=== PATIENT | female | born 1995 | race Caucasian/White ===

== ENCOUNTER 2016-10-14 13:22 | Emergency (ER) | payer BC, MEDICAID ==
[2016-10-14] MEDS ORDERED: ONDANSETRON HCL 8 MG TABLET PO ONE (13:27)
--- NOTE | 2016-10-14 13:28 | ER Document Report ---
ED Medical Screen (RME) - General Stated Complaint: FEVER Mode of Arrival: Ambulatory Information source: Patient Notes: Patient presents to the emergency department with complaints of fever nausea vomiting for 4 days. Unable to keep anything down. Last time she vomited was PTO. Last Tylenol was at 10:00 this morning. Did not receive flu vaccine this year. Denies past medical history. HR 128-130 I have greeted and performed a rapid initial assessment of this patient. A comprehensive ED assessment and evaluation of the patient, analysis of test results and completion of the medical decision making process will be conducted by additional ED providers. TRAVEL OUTSIDE OF THE [place] IN LAST 30 DAYS: No - Related Data Allergies/Adverse Reactions: No Known Allergies Allergy (Verified 10/14/16 13:27) Past Medical History Past Surgical History: Reports: Hx Orthopedic Surgery - L Foot - Immunizations Immunizations up to date: Yes Hx Diphtheria, Pertussis, Tetanus Vaccination: Yes Physical Exam - Vital signs Vitals: Temp Pulse Resp BP Pulse Ox 100.0 F 128 H 14 115/74 98 10/14/16 13:26 10/14/16 13:26 10/14/16 13:26 10/14/16 13:26 10/14/16 13:26 Course - Vital Signs Vital signs: Temp Pulse Resp BP Pulse Ox 100.0 F 128 H 14 115/74 98 10/14/16 13:26 10/14/16 13:26 10/14/16 13:26 10/14/16 13:26 10/14/16 13:26
--- NOTE | 2016-10-14 13:45 | ER Document Report ---
ED General - General Chief Complaint: Nausea Stated Complaint: FEVER Mode of Arrival: Ambulatory Information source: Patient TRAVEL OUTSIDE OF THE [place] IN LAST 30 DAYS: No - HPI Onset: Other - 3 DAYS Onset/Duration: Sudden Quality of pain: Achy Severity: Moderate Associated symptoms: Chills, Nonproductive cough, Fever, Headache, Nausea, Vomiting, Weakness. denies: Sore throat Exacerbated by: Food Relieved by: Denies Similar symptoms previously: No Recently seen / treated by doctor: No - Related Data Allergies/Adverse Reactions: No Known Allergies Allergy (Verified 10/14/16 13:27) Past Medical History - General Information source: Patient - Social History Smoking Status: Never Smoker Chew tobacco use (# tins/day): No Frequency of alcohol use: None Drug Abuse: None Lives with: Friend Family History: Reviewed & Not Pertinent Patient has suicidal ideation: No Patient has homicidal ideation: No - Past Medical History Cardiac Medical History: Reports: None Pulmonary Medical History: Reports: None EENT Medical History: Reports: None Neurological Medical History: Reports: None Endocrine Medical History: Reports: None Renal/ Medical History: Reports: None. Denies: Hx Peritoneal Dialysis Malignancy Medical History: Reports: None GI Medical History: Reports: None Musculoskeltal Medical History: Reports None Psychiatric Medical History: Reports: None Past Surgical History: Reports: Hx Orthopedic Surgery - L Foot - Immunizations Immunizations up to date: Yes Hx Diphtheria, Pertussis, Tetanus Vaccination: Yes Review of Systems - Review of Systems Constitutional: See HPI EENT: No symptoms reported Cardiovascular: See HPI Respiratory: See HPI Gastrointestinal: See HPI Genitourinary: No symptoms reported Female Genitourinary: No symptoms reported, Last menstrual period - NOW Musculoskeletal: No symptoms reported Skin: No symptoms reported Neurological/Psychological: See HPI Physical Exam - Vital signs Vitals: Temp Pulse Resp BP Pulse Ox 100.0 F 128 H 14 115/74 98 10/14/16 13:26 10/14/16 13:26 10/14/16 13:26 10/14/16 13:26 10/14/16 13:26 Interpretation: Tachycardic. No: Hypotensive, Tachypneic - General General appearance: Appears well, Alert In distress: None - HEENT Head: Normocephalic Eyes: Normal Conjunctiva: Normal Ears: Normal Nasal: Normal Mouth/Lips: Normal Mucous membranes: Dry Pharynx: Normal Neck: Normal. No: Lymphadenopathy - Respiratory Respiratory status: No respiratory distress Chest status: Nontender Breath sounds: Normal - Cardiovascular Rhythm: Regular Heart sounds: Normal auscultation Murmur: No - Abdominal Inspection: Normal Distension: No distension Bowel sounds: Normal - Back Back: Normal - Extremities General upper extremity: Normal inspection General lower extremity: Normal inspection - Neurological Neuro grossly intact: Yes Cognition: Normal Orientation: AAOx4 - Psychological Associated symptoms: Normal affect, Normal mood - Skin Skin Temperature: Warm Skin Moisture: Dry Skin Color: Normal Skin Turgor: Elastic Course - Re-evaluation Re-evalutation: 10/14/16 15:15 Patient reports she feels better. Still mildly tachycardic at about 110/m. Denies nausea. Results of laboratory studies discussed. - Vital Signs Vital signs: Temp Pulse Resp BP Pulse Ox 100.0 F 128 H 14 115/74 98 10/14/16 13:26 10/14/16 13:26 10/14/16 13:26 10/14/16 13:26 10/14/16 13:26 - Laboratory Result Diagrams: 10/14/16 13:30 10/14/16 13:30 Laboratory results interpreted by me: 10/14/16 10/14/16 10/14/16 13:30 13:30 13:35 Plt Count 105 L Seg Neutrophils % 84.0 H Lymphocytes % 10.2 L Potassium 3.5 L Urine Protein 100 H Urine Urobilinogen 4.0 H Discharge - Discharge Clinical Impression: Viral illness, Dehydration Condition: Stable Disposition: HOME, SELF-CARE Instructions: Viral Syndrome ([facility]), Dehydration ([facility]) Additional Instructions: REST, DRINK PLENTY OF FLUIDS. YOU MAY TAKE ZOFRAN IF NEEDED FOR NAUSEA CONTROL. YOU MAY TAKE TYLENOL OR IBUPROFEN FOR PAIN OR FEVER CONTROL. FOLLOW UP IF NOT IMPROVING IN 2-3 DAYS, OR SOONER IF YOU ET WORSE, ANY TIME. Prescriptions: Ondansetron [Zofran Odt 4 mg Tablet] 1 - 2 tab PO Q4H #10 tab.domenica
[2016-10-14] MEDS ORDERED: NORMAL SALINE 1000 ML 1,000 ML IV ONE (13:46)
[2016-10-14 14:03] LABS: APPEARANCE,URINE SLIGHTLY-CLOUDY; BILIRUBIN,URINE NEGATIVE (NEGATIVE); GLUCOSE, URINE NEGATIVE (NEGATIVE); KETONES,URINE NEGATIVE (NEGATIVE); LEUKOCYTE ESTERASE,URINE NEGATIVE (NEGATIVE); NITRITE,URINE NEGATIVE (NEGATIVE); PROTEIN,URINE 100 mg/dL (NEGATIVE)
[2016-10-14 14:03] LABS: ABSOLUTE LYMPHOCYTES (AUTO) 0.7 10^3/uL (0.5-4.7); ABSOLUTE MONOCYTES (AUTO) 0.4 10^3/uL (0.1-1.4); BASOPHILS % (AUTO) 0.1 % (0-2); HEMATOCRIT 37.9 % (36.0-47.0); HEMOGLOBIN 13.1 g/dL (12.0-15.5); HGB HCT DIFFERENCE 1.4; LYMPHOCYTES % (AUTO) 10.2 % (13-45); MEAN CORPUSCULAR HEMOGLOBIN 28.9 pg (27.0-33.4); MEAN CORPUSCULAR HGB CONC 34.5 g/dL (32.0-36.0); MEAN CORPUSCULAR VOLUME 84 fl (80-97); MONOCYTES % (AUTO) 5.7 % (3-13); RED BLOOD COUNT 4.53 10^6/uL (3.72-5.28); RED CELL DISTRIBUTION WIDTH 13.6 % (11.5-14.0); WHITE BLOOD COUNT 7.2 10^3/uL (4.0-10.5)
[2016-10-14 14:24] LABS: ALANINE AMINOTRANSFERASE 25 U/L (9-52); ALBUMIN 4.1 g/dL (3.5-5.0); ALKALINE PHOSPHATASE 53 U/L (38-126); ANION GAP 12 (5-19); ASPARTATE AMINO TRANSFERASE 17 U/L (14-36); BILIRUBIN,DIRECT 0.1 mg/dL (0.0-0.4); BILIRUBIN,TOTAL 0.7 mg/dL (0.2-1.3); BLOOD UREA NITROGEN 10 mg/dL (7-20); CARBON DIOXIDE 28 mmol/L (22-30); CHLORIDE 100 mmol/L (98-107); CREATININE RESULT 0.63 mg/dL (0.52-1.25); GLUCOSE 99 mg/dL (75-110); LIPASE 106.5 U/L (23-300); POTASSIUM 3.5 mmol/L (3.6-5.0); SODIUM 140.4 mmol/L (137-145); TOTAL PROTEIN 6.9 g/dL (6.3-8.2)
[2016-10-14 15:34] VITALS: BP 98/57
== END 2016-10-14 15:32 | disposition home or self-care (01) ==
LOC: ER 13:22
DX: B34.9 Viral infection, unspecified (principal); E86.0 Dehydration; R50.9 Fever, unspecified; R11.2 Nausea with vomiting, unspecified; R53.1 Weakness; R00.0 Tachycardia, unspecified
CPT/HCPCS: 99283; 96360; 36415; 83690; 84703; 85025; 80053; 81001; S0119; J7030

== ENCOUNTER 2016-12-26 20:54 | Emergency (ER) | payer SELFPAY | END 2016-12-26 21:50 | disposition left against medical advice (07) | LOC: ER 20:54 | DX: Z53.9 Procedure and treatment not carried out, unspecified reason (principal); R10.9 Unspecified abdominal pain ==